=== PATIENT | female | born 1970 | race Caucasian/White ===

== ENCOUNTER 2016-09-12 05:29 | Day surgery (SDC) | payer OTHER ==
[~2016-09-12] VITALS: Ht 154.9 cm; Wt 79.0 kg
[~2016-09-12 05:29] MED LIST: ASPIR 8181 M1 PO; BONINE25 MG PO; COMBIVENT RESPIM4 GM IH; FERROCITE324 MG PO; FLORINEF ACETA0.1 MG PO; KLOR-CON M2020 MEQ PO; LIPITOR80 MG PO; SINGULAIR10 MG PO; VITAMIN B122500 MCG PO
[2016-09-12 06:17] VITALS: BP 94/62
[2016-09-12 10:15] VITALS: BP 81/60
== END 2016-09-12 10:44 | disposition home or self-care (01) ==
LOC: SDC 05:29
DX: H35.82 Retinal ischemia (principal); H43.12 Vitreous hemorrhage, left eye; H26.9 Unspecified cataract; H33.42 Traction detachment of retina, left eye; Z91.19 Patient's noncompliance with other medical treatment and regimen; Z86.73 Personal history of transient ischemic attack (TIA), and cerebral infarction without residual deficits; I95.89 Other hypotension; F41.8 Other specified anxiety disorders; E73.9 Lactose intolerance, unspecified
CPT/HCPCS: J0690; J1100; J2795; J3300; J7120